=== PATIENT | male | born 2000 | race Caucasian/White ===

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

== ENCOUNTER 2022-01-12 17:29 | Emergency (ER) | payer BC ==
[~2022-01-12] VITALS: Ht 172.7 cm; Wt 77.1 kg
[~2022-01-12 17:29] MED LIST changes: +MIRT-68; -MIRT15TA6; +QUET100T33; -QUET100T69
[2022-01-12] MEDS ORDERED: ONDANSETRON 4 MG (ZOFRAN) ORAL DISSOLVE TAB PO ONE (18:15)
--- NOTE | 2022-01-12 18:15 | ED General ---
General Chief Complaint: General Problems/Pain Stated Complaint: DIZZY, SOB, WEAK, NAUSEA, VOMMITING, CONGESTION Source of Information: Patient Exam Limitations: No Limitations (DAYRON ZHU) History of Present Illness Date Seen by Provider: Jan 12, 2022 Time Seen by Provider: 18:15 Initial Comments Patient is a 21-year-old male who presents ED with multiple complaints. Patient reports a history of allergies. States he started not feeling well this past Monday. Vomited once. Patient has been feeling nauseous since Monday. Reports some upset stomach without any severe pain. Denies chest pain, cough. Patient states yesterday started feeling short of breath with dizziness and lightheade dness especially with exertion. Denies of any specific chest pain or known heart disease. Reports some nasal drainage with a history of allergy. Appears to be worse when he wakes up in the [place] with a slight cough with the drainage. This resolves quickly. Works at [email or web address] and has been working in the heat. He is concerned that he may be dehydrated. Has been drinking plenty of fluids. No diarrhea, dysuria, decreased urine output. Did start develop a headache today. Denies of any focal neural deficits such as unilateral muscle weakness sensory changes, visual changes, sore throat, ear pain. (DAYRON ZHU) Allergies and Home Medications Allergies Coded Allergies: No Allergy Information (Unverified , 02/09/10) VISITING AUNT-AUNT UNSURE OF ALLERGIES Patient Home Medication List Home Medication List Reviewed: Yes (DAYRON ZHU) Divalproex Sodium (Divalproex Sodium) 250 Mg Tablet.dr (Reported) Entered as Reported by: YULI FELICIANO on 01/09/18 154 Divalproex Sodium (Divalproex Sodium) 500 Mg Tablet.dr (Reported) Entered as Reported by: YULI FELICIANO on 01/09/18 154 Guanfacine HCl (Guanfacine HCl) 1 Mg Tablet, (Reported) Entered as Reported by: YULI FELICIANO on 01/09/181539 Loratadine (Loratadine) 10 Mg Tablet, (Reported) Entered as Reported by: YULI FELICIANO on 01/09/18 154 Methylphenidate Hcl (Methylin Er) 10 Mg Tablet.sa, 10 MG PO DAILY, (Reported) Entered as Reported by: LUIS ANTONIO RASCON on 02/09/10 1413 Mirtazapine (Mirtazapine) 15 Mg Tablet, (Reported) Entered as Reported by: YULI FELICIANO on 01/09/18 1540 Quetiapine Fumarate (Quetiapine Fumarate) 100 Mg Tablet, (Reported) Entered as Reported by: YULI FELICIANO on 01/09/18 1540 Review of Systems Review of Systems Constitutional: No chills, No diaphoresis; malaise, weakness EENTM: No ear pain, No blurred vision, No double vision, No mouth pain, No throat pain, No throat swelling, No other Respiratory: No cough; short of breath Cardiovascular: No chest pain Gastrointestinal: abdominal pain; No diarrhea; nausea, vomiting Genitourinary: No decreased output, No discharge Musculoskeletal: No back pain, No joint pain Skin: No change in color, No change in hair/nails Psychiatric/Neurological: Denies Anxiety, Denies Depressed (DAYRON ZHU) All Other Systems Reviewed Negative Unless Noted: Yes (DAYRON ZHU) Past Lpllfvf-Xitfqd-Odiskd Hx Past Medical History Surgeries: No Respiratory: No Cardiac: No Neurological: No Genitourinary: No Gastrointestinal: No Musculoskeletal: No Endocrine: No HEENT: No Cancer: No Psychosocial: Yes ADD/ADHD, Anxiety, Depression Integumentary: No (DAYRON ZHU) Physical Exam Vital Signs Vital Signs - First Documented 01/12/22 01/12/22 17:41 19:20 Temp 37.1 Pulse 101 Resp 18 B/P (MAP) 129/80 (96) Pulse Ox 95 O2 Delivery Room Air (MICHAEL NUR MD) Vital Signs Capillary Refill : (DAYRON ZHU) Height, Weight, BMI Height: 5'8.00" Weight: 172lbs. oz. [id number]; 21.09 BMI Method:Actual General Appearance: No Apparent Distress, WD/WN Eyes: Bilateral Eye Normal Inspection, Bilateral Eye PERRL, Bilateral Eye Abnormal EOM HEENT: PERRL/EOMI, TMs Normal, Normal ENT Inspection, Pharynx Normal Neck: Full Range of Motion, Normal Inspection, Non Tender, Supple Respiratory: Chest Non Tender, Lungs Clear, Normal Breath Sounds, No Accessory Muscle Use, No Respiratory Distress Cardiovascular: Regular Rate, Rhythm, No Edema, No Gallop, No JVD, No Murmur Gastrointestinal: Normal Bowel Sounds, No Organomegaly, No Pulsatile Mass, Non Tender Back: Normal Inspection, No CVA Tenderness, No Vertebral Tenderness Extremity: Normal Capillary Refill, Normal Inspection, Normal Range of Motion, Non Tender, No Calf Tenderness Neurologic/Psychiatric: Alert, Oriented x3, No Motor/Sensory Deficits, Normal Mood/Affect, extruder tender II-XII Norm as Tested Skin: Normal Color, Warm/Dry (DARYON ZHU) Progress/Results/Core Measures Suspected Sepsis SIRS Temperature: Pulse: Respiratory Rate: Laboratory Tests 01/12/22 18:10: White Blood Count 10.4 Blood Pressure / Mean: Laboratory Tests 01/12/22 18:10: Creatinine 1.30, Platelet Count 248, Total Bilirubin 0.5 (DAYRON ZHU) Results/Orders Lab Results Laboratory Tests Test 01/12/22 17:49 01/12/22 18:10 01/12/22 18:52 Range/Units Influenza Type A (RT-PCR) Not Detected Not Detecte Influenza Type B (RT-PCR) Not Detected Not Detecte SARS-CoV-2 RNA (RT-PCR) Not Detected Not Detecte White Blood Count 10.4 4.3-11.0 10^3/uL Red Blood Count 6.20 H 4.30-5.52 10^6/uL Hemoglobin 18.1 H 13.3-17.7 g/dL Hematocrit 52 40-54 % Mean Corpuscular Volume 84 80-99 fL Mean Corpuscular Hemoglobin 29 25-34 pg Mean Corpuscular Hemoglobin Concent 35 32-36 g/dL Red Cell Distribution Width 12.5 10.0-14.5 % Platelet Count 248 130-400 10^3/uL Mean Platelet Volume 11.3 9.0-12.2 fL Immature Granulocyte % (Auto) 0 % Neutrophils (%) (Auto) 66 42-75 % Lymphocytes (%) (Auto) 21 12-44 % Monocytes (%) (Auto) 7 0-12 % Eosinophils (%) (Auto) 5 0-10 % Basophils (%) (Auto) 1 0-10 % Neutrophils # (Auto) 6.9 1.8-7.8 10^3/uL Lymphocytes # (Auto) 2.2 1.0-4.0 10^3/uL Monocytes # (Auto) 0.7 0.0-1.0 10^3/uL Eosinophils # (Auto) 0.5 H 0.0-0.3 10^3/uL Basophils # (Auto) 0.1 0.0-0.1 10^3/uL Immature Granulocyte # (Auto) 0.0 0.0-0.1 10^3/uL Sodium Level 136 135-145 MMOL/L Potassium Level 4.2 3.6-5.0 MMOL/L Chloride Level 98 98-107 MMOL/L Carbon Dioxide Level 21 21-32 MMOL/L Anion Gap 17 H 5-14 MMOL/L Blood Urea Nitrogen 35 H 7-18 MG/DL Creatinine 1.30 0.60-1.30 MG/DL Estimat Glomerular Filtration Rate 81 BUN/Creatinine Ratio 27 Glucose Level 104 70-105 MG/DL Calcium Level 10.5 H 8.5-10.1 MG/DL Corrected Calcium 8.5-10.1 MG/DL Total Bilirubin 0.5 0.1-1.0 MG/DL Aspartate Amino Transf (AST/SGOT) 38 H 5-34 U/L Alanine Aminotransferase (ALT/SGPT) 26 0-55 U/L Alkaline Phosphatase 91 40-136 U/L Total Creatine Kinase 477 H 30-200 U/L Total Protein 10.1 H 6.4-8.2 GM/DL Albumin 5.4 H 3.2-4.5 GM/DL Urine Color ORANGE Urine Clarity CLOUDY Urine pH 6.0 5-9 Urine Specific [place] >=1.030 1.016-1.022 Urine Protein 3+ H NEGATIVE Urine Glucose (UA) NEGATIVE NEGATIVE Urine Ketones NEGATIVE NEGATIVE Urine Nitrite NEGATIVE NEGATIVE Urine Bilirubin 2+ H NEGATIVE Urine Urobilinogen 1.0 < = 1.0 MG/DL Urine Leukocyte Esterase NEGATIVE NEGATIVE Urine RBC (Auto) NEGATIVE NEGATIVE Urine RBC NONE /HPF Urine WBC 5-10 H /HPF Urine Squamous Epithelial Cells 0-2 /HPF Urine Crystals PRESENT H /LPF Urine Bacteria MODERATE H /HPF Urine Casts PRESENT /LPF Urine Hyaline Casts >50 H /LPF Urine Mucus LARGE H /LPF Urine Other 2-5 HIPPURIC ACID /HPF Urine Culture Indicated YES (MICHAEL NUR MD) Vital Signs/I&O 01/12/22 01/12/22 17:41 19:20 Temp 37.1 37.1 Pulse 101 77 Resp 18 16 B/P (MAP) 129/80 (96) 123/82 Pulse Ox 95 100 O2 Delivery Room Air (MICHAEL NUR MD) Vital Signs/I&O Capillary Refill : (DAYRON ZHU) Departure Communication (PCP) Patient works at [email or web address]. 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 Concerning for dehydration. States he has been drinking fluids. Vomited once on Monday with nausea throughout the week. Was given oral Zofran. Reports normal urination. Had some general abdominal discomfort without any pain on palpation. No surgical abdomen. No cough, chest pain. Had some mild shortness of breath with exertion. Dizzy and lightheadedness. Currently asymptomatic. Concerning that patient may be dehydrated. Patient refused IV fluids. He states he is tolerating p.o. fluids but requesting oral Zofran. Lab work was ordered to rule out any acute kidney injury versus electrolyte abnormality versus rhabdo. He had slight elevated CK in the 400s. Creatinine 1.30. Normal white blood count. COVID influenza negative. Discussed importance of oral hydration. Recommend rest but patient states he needs return back to work. He once again refused IV fluids. He states he will continue with oral hydration with water and Gatorade. If any worsening symptoms he need to return back to ED for further evaluation. Patient neuro exam unremarkable. Vital signs stable (DAYRON ZHU) Impression Primary Impression: Dehydration Disposition: 01 HOME, SELF-CARE Condition: Stable Departure-Patient Inst. Decision time for Depature: 19:18 (DAYRON ZHU) Referrals: YU DANG MD (PCP/Family) Primary Care Physician Patient Instructions: Dehydration, Adult (DC) Add. Discharge Instructions: Recommend continue oral hydration. If any worsening symptoms return back to ED. SinceAll discharge instructions reviewed with patient and/or family. Voiced understanding. ATTENDING PHYSICIAN NOTE: I was physically present as attending physician in the emergency department during the care of this patient, but I was not directly involved in the decision making or delivery of care for this patient. (MICHAEL NUR MD) DAYRON ZHU Jan 12, 2022 18:15 MICHAEL NUR MD Jan 13, 2022 07:32
[2022-01-12 18:47] LABS: BASOPHILS # (AUTO) 0.1 10^3/uL (0.0-0.1); BASOPHILS % (AUTO) 1 % (0-10); EOSINOPHILS # (AUTO) 0.5 10^3/uL (0.0-0.3); EOSINOPHILS % (AUTO) 5 % (0-10); HEMATOCRIT 52 % (40-54); HEMOGLOBIN 18.1 g/dL (13.3-17.7); LYMPHOCYTES # (AUTO) 2.2 10^3/uL (1.0-4.0); LYMPHOCYTES % (AUTO) 21 % (12-44); MEAN CORPUSCULAR HEMOGLOBIN 29 pg (25-34); MEAN CORPUSCULAR HGB CONC 35 g/dL (32-36); MEAN CORPUSCULAR VOLUME 84 fL (80-99); MEAN PLATELET VOLUME 11.3 fL (9.0-12.2); MONOCYTES # (AUTO) 0.7 10^3/uL (0.0-1.0); MONOCYTES % (AUTO) 7 % (0-12); NEUTROPHILS # (AUTO) 6.9 10^3/uL (1.8-7.8); NEUTROPHILS % (AUTO) 66 % (42-75); PLATELET COUNT 248 10^3/uL (130-400); WHITE BLOOD COUNT 10.4 10^3/uL (4.3-11.0)
[2022-01-12 18:54] LABS: CLARITY,URINE CLOUDY; COLOR,URINE ORANGE; GLUCOSE, URINE (UA) NEGATIVE (NEGATIVE); KETONES,URINE NEGATIVE (NEGATIVE); LEUKOCYTE ESTERASE ,URINE NEGATIVE (NEGATIVE); NITRITE,URINE NEGATIVE (NEGATIVE); PROTEIN,URINE 3+ (NEGATIVE)
[2022-01-12 19:08] LABS: ALANINE AMINOTRANSFERASE 26 U/L (0-55); ALBUMIN 5.4 GM/DL (3.2-4.5); ALKALINE PHOSPHATASE 91 U/L (40-136); BILIRUBIN,TOTAL 0.5 MG/DL (0.1-1.0); BUN/CREATININE RATIO 27; CALCIUM 10.5 MG/DL (8.5-10.1); CARBON DIOXIDE 21 MMOL/L (21-32); CHLORIDE 98 MMOL/L (98-107); CREATINE KINASE 477 U/L (30-200); GFR ESTIMATED 81; GLUCOSE 104 MG/DL (70-105); POTASSIUM 4.2 MMOL/L (3.6-5.0); SODIUM 136 MMOL/L (135-145); TOTAL PROTEIN 10.1 GM/DL (6.4-8.2)
[2022-01-12 19:12] LABS: BACTERIA,URINE MODERATE /HPF; HYALINE CASTS, URINE >50 /LPF; SQUAMOUS EPITHELIAL CELL,UR 0-2 /HPF
[2022-01-12 19:13] LABS: URINE OTHER 2-5 HIPPURIC ACID /HPF
[2022-01-12 19:17] LABS: BILIRUBIN,URINE 2+ (NEGATIVE)
[2022-01-12 19:20] VITALS: BP 123/82
== END 2022-01-12 19:20 | disposition home or self-care (01) ==
LOC: EDUNIT# 17:29 → ER 17:40
DX: E86.0 Dehydration (principal); Z20.822 Contact with and (suspected) exposure to COVID-19
CPT/HCPCS: 36415; 80053; 81000; 82550; 85025; 87088; 87636